=== PATIENT | female | born 1975 | race Caucasian/White ===

== ENCOUNTER 2018-12-24 19:56 | Emergency (ER) | payer OTHER ==
[~2018-12-24] VITALS: Ht 167.6 cm; Wt 100.0 kg
[2018-12-24 20:03] VITALS: BP 122/68; TEMP 97.7
[2018-12-24 22:02] VITALS: PULSE 90
== END 2018-12-24 22:03 | disposition home or self-care (01) ==
LOC: COL.ER 19:56
DX: M25.572 Pain in left ankle and joints of left foot (principal)